=== PATIENT | female | born 2005 | race Caucasian/White ===

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

== ENCOUNTER 2024-09-27 10:05 | Emergency (ER) | payer MEDICAID, SELFPAY ==
--- NOTE | ~2024-09-27 | US_ITS ---
Pelvic ultrasound. Clinical History: First trimester , vaginal bleeding Technique: Realtime transabdominal and transvaginal scanning of the pelvis was performed. Color flow Doppler and Doppler spectral analysis were performed. Findings: The uterus is retroverted.. The endometrial stripe has a thickness of 9 mm. No intrauterin e gestational sac is identified. The right ovary measures 4.1 x 2.3 x 2.7 cm. No significant right ovarian or adnexal mass is seen. The left ovary measures 3.0 x 1.8 x 1.9 cm. No significant left ovarian or adnexal mass is seen. There is small amount of free fluid in the cul de sac. Impression: Positive test without intrauterine gestational sac. Differential diagnosis includes early n ormal , spontaneous , or nonvisualized ectopic . Correlate clinically. Cont inued follow-up with serial beta hCG, and repeat ultrasound as warranted, is advised. Reviewed, dictated and finalized at [facility]. Impression: Positive test without intrauterine gestational sac. Differential diag nosis includes early normal , spontaneous , or nonvisualized e ctopic . Correlate clinically. Continued follow-up with serial beta hC G, and repeat ultrasound as warranted, is advised.
--- OUTSIDE RECORDS SUMMARY | 2024-09-27 10:08 | XMS_ITS | Clinical Summary ---
Author Organization [facility] Address [address] [place] [address] Care Team Providers Care Environmental Journalist Name Role Phone Dione Zuluaga MD Primary Care Pro vider Rosetta Nicholson DPM Unavailable [phone] Allergies Active Allergy Reactions Criticality Noted Date Comments Soap Rash Medium 04/10/2023 Dove Medications simethicone (GAS-X) 125 mg capsule Take 1 capsule (125 mg total) by mouth 4 (four) times a day as needed for flatulence (bloating/naus ea/cramping) 120 capsule 3 3 Active senna-docusate (PERICOLACE) 8.6-50 mg Take one tablet by mouth twice daily to help with chronic constipation. 120 tablet 3 3 Active ondansetron (ZOFRAN) 8 mg tablet Take 0.5-1 tablets (4-8 mg total) by mouth every 6 (six) hours as needed for nausea or vomiting 20 tablet 3 3 Active acidophilus-pecti n, citrus 100 million cell-10 mg capsule Take by mouth Activ e pediatric multivitamin tablet,chewableIn dications:Vitamin Deficiency Prevention 1 tablet Active acetaminophen (TYLENOL) 500 mg tablet Take 1 tablet (500 mg total) by mouth every 6 (six) hours as needed for pain 30 tablet 3 Active famotidine (PEPCID) 40 mg tablet Take 1 tablet (40 mg total) by mouth daily 90 tablet 3 3 Active Active Problems Problem Noted Date Diagnosed Date 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 History of constipation 06/11/2023 Irritable bowel syndrome wit h both constipation and diarrhea 04/10/2023 Nausea without vomiting 04/10/2023 Dyspepsia 04/10/2023 [place], unspecified 10/12/2022 Overview (10/12/2022): Added automatically from request for surgery [id number] Posterior tibial tendinitis of right leg 023 Overview (10/12/2022): Added automatically from request for surgery [id number] Immunizations Immunization Administration Dates Next Due DTaP / Hep B / IPV 2004,2004, 004 DTaP / IPV 01/29/2009 DTaP, Unspecified 06/20/2005 HPV9 01/31/2017,05/30/2016 Hep A, Unspecified 07/01/2007,06/26/2006 Hep B, Unspecified 2004 HiB 06/20/2005, 5,2004,04/08 Influenza, Quadrivalent, Spl it, Preservative Free, Intramuscular 06/25/2020,05/30/2016,03/30/2014 Influenza, Trivalent, IM (MDV) 05/25/2011 Influenza, Trivalent, Preser vative Free, Intramuscular 05/21/2013,05/30/2012 MMR 01/29/2009,03/09/2005 Meningococcal Conjugate (Menveo) 12/23/2020,02/13 Pneumococcal Conjugate 7-Valent 2004,04/08 Pneumococcal, Unspecified 06/26/2006,2004 Tdap 12/30/2014 Varicella 01/29/2009,03/09/2005 Surgical History Surgery Date Site/Laterality Comments ANKLE SURGERY Right Medical History Medical History Date Comments 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 Never 06/11/2023 Average Number of Drinks Not on file 023 Frequency of Binge Drinking Not on file 05/17 Personal Safety Answer Date Recorded Have you ever been in or are you currently in a harmful physical or emotional relationship or is someone making you feel afraid or unsafe? Denies 06/02/2023 Comments No Sex and Gender Information Value Date Recorded Sex Assigned at Not on file Legal Sex Female 11:43 AM [employer]AGECRAFT TE[employer] Gender Identity Not on file Sexual Orientation Not on file Obstetrics History Last Filed Vital Signs Vital Sign Reading Time Taken Comments Blood Pressure 107/74 06/11/2023 2:44 PM [employer]AGECRAFT TE[employer]ER Pulse 99 06/11/2023 2:44 PM STAGECRAFT TEACHER Temperature 36.8 C (98.2 F) 06/02/2023 3:26 AM STAGECRAFT TEACHER Respiratory Rate 18 06/02/2023 5:41 AM STAGECRAFT TEACHER Oxygen Saturation 99% 06/11/2023 2:44 PM STAGECRAFT TEACHER Inhaled Oxygen Concentration - - Weight 86.4 kg (190 lb 8 oz) 06/11/2023 2:44 PM STAGECRAFT TEACHER Height 172.7 cm (5' 7.99 ) 06/11/2023 2:44 PM CS T Body Mass Index 28.97 06/11/2023 2:44 PM STAGECRAFT TEACHER Plan of Treatment Health Maintenance Due Date Last Done Comments Depression Screening 2004 Hepatitis C Screening 2004 Meningococcal B Vaccine (1 o f 2 - Standard) 2020 Regular Well Visit/Exam 18-64 02/12/2022 Covid-19 Vaccine (4 - 2023-2 5 season) 2024 07/07/2021, 11/27/2020, 11/06/2020 Influenza Vaccine (#1) 2024 , 05/30/2016, 03/30/2014, Additional history exists DTaP/Tdap/Td Vaccine (7 - Td or Tdap) 12/30/2024 12/30/2014, 01/29/2009, 06/20/2005, Additional history exists Hepatitis B Screening Completed 2004 , 2004, 2004, Additional history exists Pneumococcal vaccine <65 Completed 006, 2004, 2004, Additional history exists Varicella Vaccines Completed 01/29/2009, 03/09/2005 HPV Vaccines Completed 01/31/2017, 05/30/2016 Meningococcal Vaccine Completed 12/23/2020, 015 Medical Devices Implanted Type Area Heating Unit Mechanic Device Identifier Shelf Expiration Date Model / Serial / Lot [facility] Suture [place] [employer] 1tt 1.4mm [id number] - [id number] Implanted:Qty: 2 on 10/27/2022 by Rosetta Nicholson DPM at [facility] Right: Foot [facility] [id number] 05/24/2024 [id number] / / [id number] Insurance [facility] Advance Directives For more information, please contact: [phone] * Full Code (Latest Code Status on File) Date Activated Date Inactivated Comments 05/24/2023 12:00 PM 05/24/2023 7:34 PM * Full Code Date Activated Date Inactivated Comments 05/24/2023 12:00 PM 05/24/2023 12:00 PM Care Teams Environmental Journalist Relationship Specialty Start Date End Date Dione Zuluaga MD PCP - General 01/10/19 Rosetta Nicholson, ELADIA [address] [place] [id number] Consulting Physician Foot and Ankle Surg 10/27/22
--- OUTSIDE RECORDS SUMMARY | 2024-09-27 10:08 | XMS_ITS | Referral Summary ---
Author Organization [facility] Address [address] [place] [address] Care Team Providers Care Amusement Centre Manager Name Role Phone Dione Zuluaga MD Primary Care Pro vider Rosetta Nicholson DPM Unavailable [phone] Allergies Active Allergy Reactions Criticality Noted Date [...] (10/12/2022): Added automatically from request for surgery [id number] Posterior tibial tendinitis of right leg 023 Overview (10/12/2022): Added automatically from request for surgery [id number] Immunizations Immunization Administration Dates Next Due DTaP [...] Pneumococcal, Unspecified 06/26/2006,2004 Tdap 12/30/2014 Varicella 01/29/2009,03/09/2005 Social History Tobacco Use Types Packs/Day Years [...] on file Legal Sex Female 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 Gender Identity Not on file Sexual Orientation Not on file Last Filed Vital Signs Vital Sign Reading Time Taken Comments Blood Pressure 107/74 06/11/2023 2:44 PM HEALTH COMMUNICATIONS SPECIALIST Pulse 99 06/11/2023 2:44 PM HEALTH COMMUNICATIONS SPECIALIST Temperature 36.8 C (98.2 F) 06/02/2023 3:26 AM HEALTH COMMUNICATIONS SPECIALIST Respiratory Rate 18 06/02/2023 5:41 AM HEALTH COMMUNICATIONS SPECIALIST Oxygen Saturation 99% 06/11/2023 2:44 PM HEALTH COMMUNICATIONS SPECIALIST Inhaled Oxygen Concentration - - Weight 86.4 kg (190 lb 8 oz) 06/11/2023 2:44 PM HEALTH COMMUNICATIONS SPECIALIST Height 172.7 cm (5' 7.99 ) 06/11/2023 2:44 PM CS T Body Mass Index 28.97 06/11/2023 2:44 PM HEALTH COMMUNICATIONS SPECIALIST Plan of Treatment Not on file Medical Devices Implanted Type Area Tip Out Worker Device Identifier Shelf Expiration Date Model / Serial / Lot [place] Endoscopy Suture [employer] [employer] Iconix 1tt 1.4mm [id number] - [id number] Implanted:Qty: 2 on 10/27/2022 by Rosetta Nicholson DPM at [facility] Right: Foot [facility] [id number] 05/24/2024 [id number] / / [id number] Insurance [facility] Advance Directives For more information, please contact: [phone] * Full Code (Latest Code Status on File) Date Activated Date Inactivated Comments 05/24/2023 12:00 PM 05/24/2023 7:34 PM * Full Code Date Activated Date Inactivated Comments 05/24/2023 12:00 PM 05/24/2023 12:00 PM Care Teams Amusement Centre Manager Relationship Specialty Start Date End Date Dione Zuluaga MD PCP - General 01/10/19 Rosetta Nicholson, ELADIA [address] [place] [address] Consulting Physician Foot and Ankle Surg 10/27/22
[2024-09-27 10:29] VITALS: BP 126/73; PULSE 101; RESP 20; TEMP 37; O2SAT 100
[2024-09-27 10:53] LABS: BEDSIDEPREGUCG Negative (Negative)
--- NOTE | 2024-09-27 10:54 | ED_ITS ---
HPI - General Adult General Chief complaint: Vaginal Bleeding Stated complaint: 5 weeks and bleeding Time Seen by Provider: 09/27/24 10:37 History of Present Illness HPI narrative: 19-year-old female presents to the emergency department for evaluation for onset of vaginal bleeding. Patient suspects she is approximately 5 weeks . This is her 1st . Patient was having some vaginal spotting yesterday and then approximately 9930 she passed a large clot. Patient was having some abdominal cramping prior to this large clot but states after passing the clot that her abdominal cramping has since significantly improved in the bleeding has also slowed. Related Data Allergies Allergy/AdvReac Type Severity Reaction Status Date / Time No Known Allergies Allergy Unknown Verified 09/27/24 10:06 Review of Systems 2 Review of Systems: All systems reviewed & are unremarkable except as noted in HPI and below PMFSH Past Medical History Medical History Nausea Vasovagal syncope Surgical History Surgical History No pertinent past surgical history Social History Social History Smoking status: Never smoker Alcohol intake: never Substance use: never Substance use type: does not use Lack of Transportation: No Lack of Food: Never True Current Housing: I Have Housing Concerned About Future Housing: No Difficulty Paying Gas/Electric Bills: No Difficulty Paying for Meds: No Currently Unemployed: No Education: High School Diploma/GED Difficulty w/ Childcare or Family Care: No Spiritual care concerns: No Exam 2 Narrative: APPEARANCE: Well appearing, no pain, no distress, well-nourished. HEAD: normocephalic, atraumatic. EYES: PERRLA/EOMI, conjunctivae clear. NOSE: Normal no drainage EARS:TMS clear with good light reflex. THROAT: Pharynx clear, no exudate. NECK: Supple. No adenopathy, no masses. RESPIRATORY: Airway patent, respirations nonlabored. Clear to auscultation bilaterally, no rales, rhonchi, wheezing. CARDIOVASCULAR: Regular rate and rhythm without murmurs rubs or gallops. ABDOMINAL: Soft, nontender, nondistended, normal bowel sounds MUSCULOSKELETAL: Moves all extremities. Strength/ROM intact, No edema, No calf tenderness. NEURO: Alert. Cranial nerves II through XII intact. Grossly SKIN: Warm, dry. Normal Color Course Vital Signs Vital signs: Vital Signs Temperature 98.6 F 09/27/24 10:29 Pulse Rate 101 H 09/27/24 10:29 Respiratory Rate 20 09/27/24 10:29 Blood Pressure 126/73 09/27/24 10:29 Pulse Oximetry 100 09/27/24 10:29 Oxygen Delivery Room Air 09/27/24 10:29 Temperature 97.9 F 09/27/24 13:00 Pulse Rate 71 09/27/24 13:00 Respiratory Rate 14 09/27/24 13:00 Blood Pressure 117/78 09/27/24 13:00 Pulse Oximetry 98 09/27/24 13:00 Oxygen Delivery Room Air 09/27/24 10:29 Medical Decision Making MDM Narrative Medical decision making narrative: 19-year-old female presents to the emergency department for evaluation for episode of vaginal bleeding uterine cramping. Patient is currently afebrile with a white blood cell count of 12.2 hemoglobin of 0.5 5. INR 1.0. No significant abnormalities on her CMP, patient's beta hCG was 20.98. Patient is blood type A positive. Positive test without intrauterine gestational sac. Differential diagnosis includes early normal , spontaneous , or nonvisualized ectopic . Correlate clinically. Continued follow-up with serial beta hCG, and repeat ultrasound as warranted, is advised. Patient was encouraged of close follow-up with OB Gyne. Differential Diagnosis Differential Diagnosis: Vaginal bleeding, vaginal discharge him UTI, threatened miscarriage, ectopic Vital Signs Vital Signs: Vital Signs Temperature 98.6 F 09/27/24 10:29 Pulse Rate 101 H 09/27/24 10:29 Respiratory Rate 20 09/27/24 10:29 Blood Pressure 126/73 09/27/24 10:29 Pulse Oximetry 100 09/27/24 10:29 Oxygen Delivery Room Air 09/27/24 10:29 Temperature 97.9 F 09/27/24 13:00 Pulse Rate 71 09/27/24 13:00 Respiratory Rate 14 09/27/24 13:00 Blood Pressure 117/78 09/27/24 13:00 Pulse Oximetry 98 09/27/24 13:00 Oxygen Delivery Room Air 09/27/24 10:29 Lab Data Lab results reviewed: Yes I reviewed the patient's lab results. 09/27/24 10:45 09/27/24 10:45 Labs: Lab Results 09/27/24 09/27/24 09/27/24 Range/Units 10:45 10:45 10:51 WBC 12.2 H (4.5-10.0) K/mm3 RBC 4.38 (4.2-5.4) M/mm3 Hgb 12.5 (12.0-15.0) g/dL Hct 39.2 (37.0-47.0) % MCV 89.5 (80-100) fl MCH 28.5 (26-34) pg MCHC 31.9 L (32-36) g/dl RDW 12.1 (11.5-14.5) % Plt Count 267 (150-375) k/mm3 MPV 11.0 H (7.4-10.4) fl Immature Gran % (Auto) 0.4 (0-0.5) % Neut % (Auto) 73.1 (45.5-73.1) % Lymph % (Auto) 15.8 L (18.3-44.2) % [place] % (Auto) 9.7 H (2.6-8.5) % Eos % (Auto) 0.3 (0-4.4) % Baso % (Auto) 0.7 (0.2-1.2) % Lymph # (Auto) 1.93 (0.9-3.2) K/mm3 [place] # (Auto) 1.2 H (0.1-0.6) K/mm3 Eos # (Auto) 0.0 (0-0.3) K/mm3 Baso # (Auto) 0.1 (0.0-0.1) K/mm3 Abs Immat Gran (auto) 0.05 H (0.00-0.031) K/mm3 Absolute Neuts (auto) 8.9 H (1.3-6.7) K/mm3 Absolute Nucleated RBC 0.000 (0.0-0.012) K/mm3 Nucleated RBC % 0.0 (0.0-0.2) % PT 13.5 (11.1-14.7) Seconds INR 1.0 APTT 26.5 (22.3-36.8) Seconds Sodium 140 (137-145) mmol/L Potassium 3.4 (3.4-5.0) mmol/L Chloride 104 (98-107) mmol/L Carbon Dioxide 23 (22-30) mmol/L Anion Gap 13 H (4-12) mmol/L BUN 10 (7-17) mg/dL Creatinine 0.70 (0.7-1.0) mg/dL Estim Creat Clear Calc 131 ml/min Estimated GFR > 60 (59 - ) Glucose 98 (65-110) mg/dL Calcium 9.3 (8.4-10.2) mg/dL Total Bilirubin 0.5 (0.2-1.3) mg/dL AST 26 (14-36) U/L ALT 39 H (6-35) U/L Alkaline Phosphatase 42 (38-126) U/L Total Protein 8.0 (6.3-8.2) g/dL Albumin 4.4 (3.5-5.1) g/dL Beta HCG, Quant 20.98 Cancelled mIU/ML POC Urine HCG, Qual Negative (Negative) Blood Type A Positive Antibody Screen Negative Screen Not Reportable Baby's Blood Type Not Reportable Baby's DAVIDSON Not Reportable Doses of RhIg Required 0 Imaging Data Radiologist's impression: Impressions Obstetrics Ultrasound 09/27/24 12:24 Impression: Positive test without intrauterine gestational sac. Differential diagnosis includes early normal , spontaneous , or nonvisualized ectopic . Correlate clinically. Continued follow-up with serial beta hCG, and repeat ultrasound as warranted, is advised. Discharge Plan Discharge Clinical Impression: Vaginal bleeding affecting early Patient Disposition: Home, Self-Care Condition: Stable Instructions: Antibiotic Form, Threatened Miscarriage (ED) Additional Instructions: Have close follow-up with OB Gyne. Tylenol for pain control, drink plenty of fluids. You will need to have repeat beta hCG the next 1-2 days. If you have any worsening symptoms please call or return to the emergency department. Patient Language: Yi Prescriptions: No Action ondansetron 4 mg tablet,disintegrating 4 mg PO Q8H PRN (Reason: nausea and vomiting) Qty: 30 0RF ondansetron 4 mg tablet,disintegrating 4 mg PO Q8H PRN (Reason: nausea and vomiting) Qty: 14 0RF Follow-up/Referrals: Margareth,Dione Holden MD [Primary Care Provider] -
[2024-09-27 10:56] LABS: Basophils Absolute Auto 0.1 K/mm3 (0.0-0.1); Basophils Percent Auto 0.7 % (0.2-1.2); Eosinophils Percent Auto 0.3 % (0-4.4); Hematocrit 39.2 % (37.0-47.0); Hemoglobin 12.5 g/dL (12.0-15.0); Immature Granulocyte Absolute 0.05 K/mm3 (0.00-0.031); Immature Granulocyte Percent A 0.4 % (0-0.5); Lymphocytes Absolute Auto 1.93 K/mm3 (0.9-3.2); Lymphocytes Percent Auto 15.8 % (18.3-44.2); Mean Corpuscular HGB Conc 31.9 g/dl (32-36); Mean Corpuscular Hemoglobin 28.5 pg (26-34); Mean Corpuscular Volume 89.5 fl (80-100); Monocytes Absolute Auto 1.2 K/mm3 (0.1-0.6); Monocytes Percent Auto 9.7 % (2.6-8.5); Neutrophils Absolute Auto 8.9 K/mm3 (1.3-6.7); Neutrophils Percent Auto 73.1 % (45.5-73.1); Platelet Count Result 267 k/mm3 (150-375); Red Blood Count 4.38 M/mm3 (4.2-5.4); Red Cell Distribution Width 12.1 % (11.5-14.5); White Blood Count 12.2 K/mm3 (4.5-10.0)
--- OUTSIDE RECORDS SUMMARY | 2024-09-27 10:56 | XMS_ITS | Clinical Summary ---
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 Gender Identity Not on file Sexual Orientation Not on file Obstetrics History Last Filed Vital Signs Vital Sign Reading Time Taken Comments Blood Pressure 107/74 06/11/2023 2:44 PM POTATO CHIP MAKER Pulse 99 06/11/2023 2:44 PM POTATO CHIP MAKER Temperature 36.8 C (98.2 F) 06/02/2023 3:26 AM POTATO CHIP MAKER Respiratory Rate 18 06/02/2023 5:41 AM POTATO CHIP MAKER Oxygen Saturation 99% 06/11/2023 2:44 PM POTATO CHIP MAKER Inhaled Oxygen Concentration - - Weight 86.4 kg (190 lb 8 oz) 06/11/2023 2:44 PM POTATO CHIP MAKER Height 172.7 cm (5' 7.99 ) 06/11/2023 2:44 PM CS T Body Mass Index 28.97 06/11/2023 2:44 PM POTATO CHIP MAKER Plan of Treatment Health Maintenance Due Date [...] 12/23/2020, 015 Medical Devices Implanted Type Area Clearing Hand Device Identifier Shelf Expiration Date Model / Serial / Lot [place] End[facility] Suture [place] [employer] Iconix 1tt 1.4mm [id number] - [id number] Implanted:Qty: 2 on 10/27/2022 by Rosetta Nicholson DPM at [facility] Right: Foot [facility] [facility] [id number] 05/24/2024 [id number] / / [id number] Insurance Member Subscriber Plan / Payer (Ef fective 2019-Present) Name:Susana Sinclair Relation to Subscriber:Self Name:Susana Sinclair Payer ID:[id number] ([facility]) Type:MEDICAID RISK OTHER Address: [place] [address] [facility] Advance Directives For more information, please contact: [phone] * Full Code (Latest Code Status on File) Date Activated Date Inactivated Comments 05/24/2023 12:00 PM 05/24/2023 7:34 PM * Full Code Date Activated Date Inactivated Comments 05/24/2023 12:00 PM 05/24/2023 12:00 PM Care Teams Mobile Phone Salesperson Relationship Specialty Start Date End Date Dione Zuluaga MD PCP - General 01/10/19 Rosetta Nicholson, ELADIA [address] [place] [id number] Consulting Physician Foot and Ankle Surg 10/27/22
--- OUTSIDE RECORDS SUMMARY | 2024-09-27 10:56 | XMS_ITS | Referral Summary ---
Author Organization [facility] Address [address] [place] [address] Care Team Providers Care Imcu Specialist Name Role Phone Dione Zuluaga MD Primary Care Pro vider Rosetta Nicholson DPM Unavailable [phone] Allergies Active Allergy Reactions Criticality Noted Date [...] (10/12/2022): Added automatically from request for surgery [id number] Posterior tibial tendinitis of right leg 023 Overview (10/12/2022): Added automatically from request for surgery [id number] Immunizations Immunization Administration Dates Next Due DTaP [...] on file Legal Sex Female 11:43 AM CHECKER Gender Identity Not on file Sexual Orientation Not on file Last Filed Vital Signs Vital Sign Reading Time Taken Comments Blood Pressure 107/74 06/11/2023 2:44 PM CHECKER Pulse 99 06/11/2023 2:44 PM CHECKER Temperature 36.8 C (98.2 F) 06/02/2023 3:26 AM CHECKER Respiratory Rate 18 06/02/2023 5:41 AM CHECKER Oxygen Saturation 99% 06/11/2023 2:44 PM CHECKER Inhaled Oxygen Concentration - - Weight 86.4 kg (190 lb 8 oz) 06/11/2023 2:44 PM CHECKER Height 172.7 cm (5' 7.99 ) 06/11/2023 2:44 PM CS T Body Mass Index 28.97 06/11/2023 2:44 PM CHECKER Plan of Treatment Not on file Medical Devices Implanted Type Area Auditor Medical Claims Device Identifier Shelf Expiration Date Model / Serial / Lot [place] Endoscopy Suture [place] [employer] Iconix 1tt 1.4mm [id number] - [id number] Implanted:Qty: 2 on 10/27/2022 by Rosetta Nicholson DPM at [facility] Right: Foot [facility] [id number] 05/24/2024 [id number] / / [id number] Insurance [facility] Advance Directives For more information, please contact: [phone] * Full Code (Latest Code Status on File) Date Activated Date Inactivated Comments 05/24/2023 12:00 PM 05/24/2023 7:34 PM * Full Code Date Activated Date Inactivated Comments 05/24/2023 12:00 PM 05/24/2023 12:00 PM Care Teams Imcu Specialist Relationship Specialty Start Date End Date Dione Zuluaga MD PCP - General 01/10/19 Rosetta Nicholson, ELADIA [address] [place] [id number] Consulting Physician Foot and Ankle Surg 10/27/22
[2024-09-27 11:06] LABS: Prothrombin Time 13.5 Seconds (11.1-14.7)
[2024-09-27 11:07] LABS: Alanine Aminotransferase 39 U/L (6-35); Albumin Level 4.4 g/dL (3.5-5.1); Alkaline Phosphatase 42 U/L (38-126); Anion Gap 13 mmol/L (4-12); Aspartate Amino Transferase 26 U/L (14-36); Bilirubin,Total 0.5 mg/dL (0.2-1.3); Blood Urea Nitrogen 10 mg/dL (7-17); Calcium 9.3 mg/dL (8.4-10.2); Carbon Dioxide 23 mmol/L (22-30); Chloride 104 mmol/L (98-107); Estimated CRCL calculation 131 ml/min; Estimated Glomerular Filt Rate > 60; Glucose 98 mg/dL (65-110); Partial Thromboplastin Time 26.5 Seconds (22.3-36.8); Potassium 3.4 mmol/L (3.4-5.0); Sodium 140 mmol/L (137-145)
[2024-09-27 11:23] LABS: Beta HCG Quantitative 20.98 mIU/ML
[2024-09-27 13:00] VITALS: BP 117/78; PULSE 71; RESP 14; TEMP 36.6; O2SAT 98
== END 2024-09-27 13:01 | disposition home or self-care (01) ==
PROVIDERS: Emergency Provider Emergency Medicine; PCP Pediatrics
DX: O20.9 Hemorrhage in early pregnancy, unspecified (principal); Z3A.01 Less than 8 weeks gestation of pregnancy
CPT/HCPCS: 36415; 76801; 76817; 80053; 81025; 84702; 85025; 85461; 85610; 85730; 86850; 86900; 86901; 99284